=== PATIENT | female | born 1970 | race Hispanic/Latino ===

== ENCOUNTER 2022-09-17 08:35 | Emergency (ER) | payer SELFPAY ==
[2022-09-17] MEDS ORDERED: ALBUTEROL 2.5 MG/3 ML NEB SOL ONE (08:52)
[2022-09-17] MEDS ORDERED: predniSONE 20 MG TAB ONE (08:52)
[2022-09-17] MEDS ORDERED: IPRATROPIUM BROM 0.5MG/2.5ML ONE (08:53)
--- NOTE | 2022-09-17 09:23 | RAD REPORT ---
EXAM DESCRIPTION: [facility] And Lat (2 Views)09/17/2022 8:59 am CLINICAL HISTORY: DYSPNEA. Asthma exacerbation. Cough starting yesterday COMPARISON: No comparisons TECHNIQUE: PA and lateral views of the chest. FINDINGS: Streaky infrahilar/ left basal opacities, on the left, best appreciated on the lateral vie w, could reflect reactive airway changes or early airspace opacification. No pneumothorax or effusion . The cardiomediastinal contours are unremarkable. IMPRESSION: Left infrahilar/ basilar opacities could reflect reactive airway changes or early airspa ce opacities.
[2022-09-17 09:45] LABS: SARS-COV-2 RT PCR NEGATIVE (NEGATIVE)
[2022-09-17] MEDS ORDERED: ACETAMINOPHEN 500 MG TAB ONE (09:49)
--- NOTE | 2022-09-17 10:22 | EDPHYS ---
Physician Documentation [facility] Name: Layla Ny Age: 52 yrs Sex: Female : 1970 Arrival Date: 09/17/2022 Time: 08:35 Bed 20 Private MD: ED Physician Les Chacon HPI: 09/17 08:53 This 52 yrs old Female presents to ER via Ambulatory with complaints of Asthma kb Exacerbation. 08:53 The patient or guardian reports cough, difficulty breathing, flu symptoms, low-grade kb fever. Onset: The symptoms/episode began/occurred yesterday. Severity of symptoms: At their worst the symptoms were moderate, in the emergency department the symptoms are unchanged. Modifying factors: The symptoms are alleviated by nothing, the symptoms are aggravated by nothing. Associated signs and symptoms: Pertinent positives: fever, Pertinent negatives: chest pain, diarrhea, ear ache, nausea, rhinorrhea, sore throat, vomiting. The patient has not experienced similar symptoms in the past. The patient has not recently seen a physician. Historical: - Allergies: 08:44 No Known Allergies; ap3 - PMHx: 08:44 Diabetes mellitus; Asthma; ap3 - PSHx: 08:44 section; ap3 - Immunization history:: Client reports receiving the 2nd dose of the Covid vaccine. - Social history:: Smoking status: Patient denies any tobacco usage or history of. ROS: 08:52 Abdomen/GI: Negative for abdominal pain, nausea, vomiting, diarrhea, and constipation. kb 08:52 Constitutional: Positive for fever. 08:52 Respiratory: Positive for cough, shortness of breath. 08:52 All other systems are negative. Exam: 08:52 Constitutional: This is a well developed, well nourished patient who is awake, alert, kb and in no acute distress. Head/Face: Normocephalic, atraumatic. ENT: Moist Mucous membranes Cardiovascular: Regular rate and rhythm with a normal S1 and S2. No gallops, murmurs, or rubs. No pulse deficits. Abdomen/GI: Soft, non-tender. No distention Skin: Warm, dry with normal turgor. Normal color. MS/ Extremity: Pulses equal, no cyanosis. Neurovascular intact. Full, normal range of motion. Neuro: Awake and alert, GCS 15, oriented to person, place, time, and situation. Moves all extremities. Normal gait. Psych: Awake, alert, with orientation to person, place and time. Behavior, mood, and affect are within normal limits. 08:52 Respiratory: mild respiratory distress is noted, Respirations: labored breathing, that is mild, Breath sounds: are clear throughout. Vital Signs: 08:41 BP 151 / 68; Pulse 80; Resp 21; Temp 97.7(T); Pulse Ox 96% ; Weight 92.99 kg; ap3 09:47 BP 142 / 78; Pulse 81; Resp 18; Pulse Ox 94% ; jh5 MDM: 08:36 Patient medically screened. bs3 08:50 Differential diagnosis: acute asthma, URI, Pneumonia, flu, COVID. Data reviewed: vital kb signs, nurses notes. ED course: Patient is a 52-year-old female with a history of diabetes and asthma who presents with shortness of breath, fever, cough that started yesterday. Lungs clear throughout on exam with increased work of breathing. Will obtain flu and COVID test, chest x-ray and provide neb treatments and steroids.. 10:10 Historians other than the Patient: Family Member: family member. Counseling: I had a kb detailed discussion with the patient and/or guardian regarding: the historical points, exam findings, and any diagnostic results supporting the discharge/admit diagnosis, lab results, radiology results, the need for outpatient follow up, a family practitioner, to return to the emergency department if symptoms worsen or persist or if there are any questions or concerns that arise at home. 09/17 08:44 Order name: COVID-19/FLU A+B 09/17 09:46 Order name: COVID-19/FLU A+B; Complete Time: 10:01 EDMS 09/17 08:44 Order name: Chest Pa And Lat (2 Views) XRAY 09/17 09:23 Order name: RAD; Complete Time: 09:24 EDMS Administered Medications: 08:53 Drug: predniSONE 40 mg Route: PO; [facility] 09:04 Drug: DuoNeb (albuterol 2.5 mg, ipratropium 0.5 mg) (3:1) (2.5 mg - 0.5 mg) 3 ml Route: 5 Nebulizer; Disposition: 18:56 Co-signature as Attending Physician, Les Chacon MD. bs3 Disposition Summary: 09/17/22 10:21 Discharge Ordered Location: Home kb Condition: Stable kb Diagnosis - Unspecified asthma with (acute) exacerbation kb Followup: kb - With: Emergency Department - When: As needed - Reason: Worsening of condition Followup: kb - With: Private Physician - When: 2 - 3 days - Reason: Recheck today's complaints, Continuance of care, Re-evaluation by your physician Discharge Instructions: - Discharge Summary Sheet kb - Asthma, Adult, [id number] kb Forms: - Work release form kb - Medication Reconciliation Form kb - Thank You Letter kb - Antibiotic Education kb - Prescription Opioid Use kb Prescriptions: - Prednisone 20 mg Oral Tablet - take 1 tablet by ORAL route once daily for 5 days; 5 tablet; Refills: 0, kb Product Selection Permitted - Zithromax 500 mg Oral Tablet - take 1 tablet by ORAL route once daily for 5 days; 5 tablet; Refills: 0, kb Product Selection Permitted - albuterol sulfate 90 mcg/actuation Inhalation HFA aerosol inhaler - inhale 2 puff by INHALATION route every 4-6 hours As needed; 1 Inhaler; kb Refills: 0, Product Selection Permitted Signatures: Dispatcher [employer] Carmela Lobo, JUANPABLO-C JUANPABLO-Kathy Nguyen RN RN ap3 Nella Barbour RN RN jh5 Les Chacon MD MD bs3
--- NOTE | 2022-09-17 10:22 | ER ---
Nurse's Notes [facility] Name: Layla Ny Age: 52 yrs Sex: Female : 1970 Arrival Date: 09/17/2022 Time: 08:35 Bed 20 Private MD: Diagnosis: Unspecified asthma with (acute) exacerbation Presentation: 09/17 08:41 Chief complaint: Patient states: she started having an asthma exacerbation yesterday ap3 with cough. Coronavirus screen: Client presents with at least one sign or symptom that may indicate coronavirus-19. Ebola Screen: No symptoms or risks identified at this time. Initial Sepsis Screen: Does the patient meet any 2 criteria? No. Patient's initial sepsis screen is negative. Initial Sepsis Screen: Does the patient have a suspected source of infection? No. Patient's initial sepsis screen is negative. Risk Assessment: Do you want to hurt yourself or someone else? Patient reports no desire to harm self or others. Onset of symptoms was September 16, 2022. 08:41 Method Of Arrival: Ambulatory ap3 08:41 Acuity: NERIS 3 ap3 Triage Assessment: 08:44 General: Appears in no apparent distress. Behavior is calm, cooperative, appropriate ap3 for age. Pain: Denies pain. Neuro: Level of Consciousness is awake, alert, obeys commands, Oriented to person, place, time. Respiratory: Reports shortness of breath cough that is Airway is patent Respiratory effort is even, unlabored, Respiratory pattern is regular, symmetrical. Historical: - Allergies: 08:44 No Known Allergies; ap3 - PMHx: 08:44 Diabetes mellitus; Asthma; ap3 - PSHx: 08:44 section; ap3 - Immunization history:: Client reports receiving the 2nd dose of the Covid vaccine. - Social history:: Smoking status: Patient denies any tobacco usage or history of. Screenin:45 [facility] ED Fall Risk Assessment (Adult) History of falling in the last 3 months, ap3 including since admission No falls in past 3 months (0 pts). Abuse screen: Denies threats or abuse. Nutritional screening: No deficits noted. Tuberculosis screening: No symptoms or risk factors identified. Vital Signs: 08:41 BP 151 / 68; Pulse 80; Resp 21; Temp 97.7(T); Pulse Ox 96% ; Weight 92.99 kg; ap3 09:47 BP 142 / 78; Pulse 81; Resp 18; Pulse Ox 94% ; 5 ED Course: 08:35 Patient arrived in ED. mr 08:36 Les Chacon MD is Attending Physician. bs3 08:37 [facility] Echols [facility]C [facility] kb 08:44 Triage completed. ap3 08:45 Arm band placed on right wrist. ap3 08:53 COVID-19/FLU A+B Sent. 5 Administered Medications: 08:53 Drug: predniSONE 40 mg Route: PO; 5 09:04 Drug: DuoNeb (albuterol 2.5 mg, ipratropium 0.5 mg) (3:1) (2.5 mg - 0.5 mg) 3 ml Route: [facility] Nebulizer; Outcome: 10:21 Discharge ordered by . kb 10:50 Patient left the ED. bc6 Signatures: Carmela Echols FNP-C FNP-Oni Cami TapiaKathy, RN RN ap3 Nella Barbour, RN RN 5 Les Chacon MD MD bs3 Nikki Treviño 6
[2022-09-17 10:54] VITALS: TEMP 97.7
[2022-09-17 10:55] VITALS: BP 142/78; O2SAT 94
== END 2022-09-17 10:50 | disposition home or self-care (01) ==
LOC: ER 08:35
DX: J45.901 Unspecified asthma with (acute) exacerbation (principal); R50.9 Fever, unspecified; Z20.822 Contact with and (suspected) exposure to COVID-19
CPT/HCPCS: 0240U; 71046; J7512; J7613; J7644

== ENCOUNTER 2024-03-04 13:07 | Emergency (ER) | payer SELFPAY ==
--- OUTSIDE RECORDS SUMMARY | 2024-03-04 13:10 | XMS REPORT | Continuity of Care Document ---
Author Name Unknown Address [address] [facility]. [address] [place] [address] [facility] thconnect Address 1200 [facility] [address] [place] [address] Care Team Providers Care Library Media Assistant Name Role Phone Unavailable Unavailable Unavailable Encounters Start Date/Time End Date/Time Encounter Type Admission Type Attending [facility] Care Facility Care Department Encounter ID Source 2023-11-17 08:43:49 2023-11-17 08:43:49 Outpatient [facility] SFA [id number] Michael Gibbs 2023-10-07 08:14:58 2023-10-07 08:14:58 Outpatient SFA SFA [id number] Michael Gibbs 2023-10-06 14:04:46 2023-10-06 14:04:46 Outpatient SFA SFA [id number] Michael Gibbs 2023-09-24 09:51:40 2023-09-24 09:51:40 Outpatient SFA SFA [id number] Michael Gibbs 2023-09-18 09:39:14 2023-09-18 09:39:14 Outpatient SFA SFA [id number] Michael Gibbs 2023-08-31 09:08:53 2023-08-31 09:08:53 Outpatient SFA SFA [id number] Michael Gibbs 2023-08-28 15:40:59 2023-08-28 15:40:59 Outpatient SFA SFA [id number] Michael Gibbs 2023-04-13 17:15:45 2023-04-13 17:15:45 Outpatient SFA SFA [id number] Michael Gibbs 2023-02-04 17:05:03 2023-02-04 17:05:03 Outpatient SFA SFA [id number] Michael Gibbs 2023-01-28 11:08:10 2023-01-28 11:08:10 Outpatient [facility] [id number] Michael Gibbs 2022-11-19 09:09:28 2022-11-19 09:09:28 Outpatient [facility] [id number] Michael Gibbs 2022-11-18 16:08:56 2022-11-18 16:08:56 Outpatient [facility] [id number] Michael Gibbs 2022-09-26 16:11:25 2022-09-26 16:11:25 Outpatient [facility] [id number] Michael Gibbs 2022-07-03 08:14:00 2022-07-03 08:14:00 Outpatient [facility] [id number] Michael Gibbs 2022-07-01 09:01:34 2022-07-01 09:01:34 Outpatient [facility] [id number] Michael Gibbs 2022-06-11 13:16:51 2022-06-11 13:16:51 Outpatient [facility] [id number] Michael Gibbs Results Test Description Test Time Test Comments Results Result Co mments Source COMPREHENSIVE METABOLIC [id number] 05:45:21* Test Item Value Reference Range Interpretation Comme nts GLUCOSE (test code = 2217) 165 MG/DL 70-99 H BUN (test code = 2208) 16 MG/DL 6-20 CREATININE (test code = 2214) 0.58 MG/DL 0.60-1.30 L eGFR (2020 CKD-EPI) (test code = 30385) 107 ML/MIN/1.73 >60 CALC BUN/CREAT (test code = 2235) 28 RATIO 6-28 SODIUM (test code = 2231) 139 MEQ/L 133-146 POTASSIUM (test code = 2228) 4.4 MEQ/L 3.5-5.4 CHLORIDE (test code = 2215) 102 MEQ/L 95-107 CARBON DIOXIDE (test code = 2206) 26 MEQ/L 19-31 CALCIUM (test code = 2209) 9.6 MG/DL 8.5-10.5 PROTEIN, TOTAL (test code = 222) 7.5 G/DL 6.1-8.3 ALBUMIN (test code = 2201) 4.2 G/DL 3.5-5.2 CALC GLOBULIN (test code = 2240) 3.3 G/DL 1.9-3.7 CALC A/G RATIO (test code = 2233) 1.3 RATIO 1.0-2.6 BILIRUBIN, TOTAL (test code = 7) 0.5 MG/DL <=1.2 ALKALINE PHOSPHATASE (test code = 4) 80 U/L 40-133 AST (test code = 2218) 16 U/L 9-40 ALT (test code = 2219) 17 U/L 5-40 LIPID [id number] 05:45:21* Test Item Value Reference Range Interpretation Comme nts CHOLESTEROL (test code = 0) 150 MG/DL <200 TRIGLYCERIDES (test code = 2232) 84 MG/DL <150 HDL CHOLESTEROL (test code = 0) 43 MG/DL >39 CALC LDL CHOL (test code = 2236) 90 MG/DL <100 NOTE: CALCULATED LDL IS BASED ON OSIEL-MIRANDA METHOD WHICHINCLUDES ADJUSTABLE TRIGLYCERIDE:VLDL CHOLESTEROL RATIO.THIS FACTOR VARIES BY MEASURED TRIGLYCERIDE AND NON-HDLCHOLESTEROL CONCENTRATIONS WITH INCREASED CALCULATED LDL SEENIN HIGHER TRIGLYCERIDE OR LOWER NON-HDL SPECIMENS. FOR MOREINFORMATION, SEE CLIENT ANNOUNCEMENT AT [email or web address] RISK RATIO LDL/HDL (test code = 2238) 2.09 RATIO <3.22 HEMOGLOBIN [id number] 04:53:28* Test Item Value Reference Range Interpretation Comme nts HEMOGLOBIN A1c (test code = 32832) 8.0 % 4.2-5.6 H [employer] GUIDELINES FOR HGB A1C: PREDIABETES/INCREASED RISK . . . . . . . 5.7-6.4% DIAGNOSIS OF DIABETES . . . . . . . . . >=6.5% WITH CONFIRMATION OR APPROPRIATE SYMPTOMS NOTE: ASSAY MAY BE AFFECTED BY HEMOGLOBINOPATHIES (SICKLE CELL ANEMIA, S-C DISEASE, OTHERS) OR ARTIFICIALLY LOWERED BY DECREASED RED CELL SURVIVAL (HEMOLYTIC ANEMIAS, BLOOD LOSS, ETC.). CONSIDER ALTERNATE TESTING OR LABORATORY CONSULTATION. H. PYLORI (BREATH)2023-10-08 16:47:53* Test Item Value Reference Range Interpretation Comme nts H. PYLORI (BREATH) (test code = 10483) NEGATIVE NEGATIVE UNLESS OTHER JAMES INDICATED, ALL TESTING PERFORMED AT [facility] [address] [place] [address] DIRECTOR GLOBAL DEVELOPMENT: SWATHI MARTE M.D. CLIA NUMBER [id number] [place]. [id number] H. PYLORI (BREATH)2023-09-01 14:49:25* Test Item Value Reference Range Interpretation Comme nts H. PYLORI (BREATH) (test code = 92511) POSITIVE NEGATIVE A UNLESS OTHER JAMES INDICATED, ALL TESTING PERFORMED AT [facility] [address] [place] [address] DIRECTOR GLOBAL DEVELOPMENT: SWATHI MARTE M.D. CLIA NUMBER [id number] [place]. [id number] ALBUMIN/CREATININE RATIO, URINE, [id number] 05:19:00* Test Item Value Reference Range Interpretation Comme nts CREATININE, URINE, CONC. (test code = 2072) 270.0 MG/DL NOT ESTAB ALBUMIN, URINE, RANDOM (test code = 63501) 14.1 MG/DL NOT ESTAB CALC ALBUMIN/CREAT, RND (test code = 60849) 52 MG/G <30 H Note: Albumin/Creatinine ratio reference interval reflects ADA and NKF guidelines. COMPREHENSIVE METABOLIC [id number] 04:26:22* Test Item Value Reference Range Interpretation Comme nts GLUCOSE (test code = 2217) 171 MG/DL 70-99 H BUN (test code = 2208) 16 MG/DL 6-20 CREATININE (test code = 2214) 0.55 MG/DL 0.60-1.30 L eGFR (2020 CKD-EPI) (test code = 47654) 108 ML/MIN/1.73 >60 CALC BUN/CREAT (test code = 2235) 29 RATIO 6-28 H SODIUM (test code = 2231) 140 MEQ/L 133-146 POTASSIUM (test code = 2228) 4.5 MEQ/L 3.5-5.4 CHLORIDE (test code = 2215) 100 MEQ/L 95-107 CARBON DIOXIDE (test code = 2206) 27 MEQ/L 19-31 CALCIUM (test code = 2209) 10.0 MG/DL 8.5-10.5 PROTEIN, TOTAL (test code = 222) 7.5 G/DL 6.1-8.3 ALBUMIN (test code = 2200) 4.1 G/DL 3.5-5.2 CALC GLOBULIN (test code = 2240) 3.4 G/DL 1.9-3.7 CALC A/G RATIO (test code = 2233) 1.2 RATIO 1.0-2.6 BILIRUBIN, TOTAL (test code = 7) 0.4 MG/DL <=1.2 ALKALINE PHOSPHATASE (test code = 4) 87 U/L 40-133 AST (test code = 2218) 20 U/L 9-40 ALT (test code = 2219) 23 U/L 5-40 LIPID [id number] 04:26:22* Test Item Value Reference Range Interpretation Comme nts CHOLESTEROL (test code = 0) 179 MG/DL <200 TRIGLYCERIDES (test code = 2232) 165 MG/DL <150 H HDL CHOLESTEROL (test code = 0) 40 MG/DL >39 CALC LDL CHOL (test code = 2236) 111 MG/DL <100 H NOTE: CALCULATED LDL IS BASED ON OSIEL-MIRANDA METHOD WHICHINCLUDES ADJUSTABLE TRIGLYCERIDE:VLDL CHOLESTEROL RATIO.THIS FACTOR VARIES BY MEASURED TRIGLYCERIDE AND NON-HDLCHOLESTEROL CONCENTRATIONS WITH INCREASED CALCULATED LDL SEENIN HIGHER TRIGLYCERIDE OR LOWER NON-HDL SPECIMENS. FOR MOREINFORMATION, SEE CLIENT ANNOUNCEMENT AT [email or web address] [email or web address] RATIO LDL/HDL (test code = 223) 2.78 RATIO <3.22 HEMOGLOBIN [id number] 02:42:18* Test Item Value Reference Range Interpretation Comme [facility] HEMOGLOBIN A1c (test code = 12844) 11.3 % 4.2-5.6 H [employer] GUIDELINES FOR HGB A1C: PREDIABETES/INCREASED RISK . . . . . . . 5.7-6.4% DIAGNOSIS OF DIABETES . . . . . . . . . >=6.5% WITH CONFIRMATION OR APPROPRIATE SYMPTOMS NOTE: ASSAY MAY BE AFFECTED BY HEMOGLOBINOPATHIES (SICKLE CELL ANEMIA, S-C DISEASE, OTHERS) OR ARTIFICIALLY LOWERED BY DECREASED RED CELL SURVIVAL (HEMOLYTIC ANEMIAS, BLOOD LOSS, ETC.). CONSIDER ALTERNATE TESTING OR LABORATORY CONSULTATION. MENDEZ (ANTI-NUCLEAR AB) WITH REFLEX [id number] 02:36:39* Test Item Value Reference Range Interpretation Comme nts ANTI-NUCLEAR ANTIBODIES (test code = 3506) NEGATIVE NEGATIVE Methodology is I ndirect Immunofluorescent Assay (IFA) with a titering system using [id number] cells (Hep2 cells transfected with SS-A/Ro). MENDEZ PATTERN (REPORTED TITER) (test code = 00339) SEE BELOW HOMOGENEOUS (test code = 49188) NEGATIVE TITER NEGATIVE SPECKLED (test code = 517440) NEGATIVE TITER NEGATIVE DENSE FINE SPECKLED (test code = 36322) NEGATIVE TITER NEGATIVE CENTROMERE (test code = 194955) NEGATIVE TITER NEGATIVE COARSE SPECKLED (test code = 983543) NEGATIVE TITER NEGATIVE DISCRETE NUCLEAR DOTS (test code = 556460) NEGATIVE TITER NEGATIVE NUCLEOLAR (test code = 248846) NEGATIVE TITER NEGATIVE NUCLEAR MEMBRANE (test code = 568201) NEGATIVE TITER NEGATIVE CYTO. RETICULAR (JACKY) (test code = 900971) NEGATIVE NEGATIVE COMMENTS (test code = 243999) NONE METHOD (test code = 88617) (NOTE) TESTING PERFORME D BY [employer] IFA PLATFORM.THE METHOD INCLUDES A SCREEN THRESHOLD OF 1:80, DIGITIZED AND COMPUTER ALGORITHM-ASSISTED INTERPRETATION OF TITERS AND DIGITAL PATTERNS, AND HEp-2 CELL LINE SUBSTRATE. ADDITIONAL UNUSUAL PATTERNS WILL BE GIVEN COMMENTS.FOR MORE INFORMATION, SEE [email or web address] SEDIMENTATION [id number] 08:33:43* Test Item Value Reference Range Interpretation Comme nts SEDIMENTATION RATE (test cod e = 1017) 14 MM/HOUR 0-20 COMPREHENSIVE METABOLIC [id number] 06:50:22* Test Item Value Reference Range Interpretation Comme nts GLUCOSE (test code = 2217) 288 MG/DL 70-99 H BUN (test code = 2208) 18 MG/DL 6-20 CREATININE (test code = 2214) 0.52 MG/DL 0.60-1.30 L eGFR (2020 CKD-EPI) (test code = 94341) 110 ML/MIN/1.73 >60 CALC BUN/CREAT (test code = 2235) 35 RATIO 6-28 H SODIUM (test code = 2231) 137 MEQ/L 133-146 POTASSIUM (test code = 2228) 4.0 MEQ/L 3.5-5.4 CHLORIDE (test code = 2215) 99 MEQ/L 95-107 CARBON DIOXIDE (test code = 2206) 26 MEQ/L 19-31 CALCIUM (test code = 2209) 9.2 MG/DL 8.5-10.5 PROTEIN, TOTAL (test code = 2229) 7.0 G/DL 6.1-8.3 ALBUMIN (test code = 2201) 4.1 G/DL 3.5-5.2 CALC GLOBULIN (test code = 2240) 2.9 G/DL 1.9-3.7 CALC A/G RATIO (test code = 2234) 1.4 RATIO 1.0-2.6 BILIRUBIN, TOTAL (test code = 2206) 0.5 MG/DL See_Comment [Automated me ssage] The system which generated this result transmitted reference range: <=1.2. The reference range was not used to interpret this result as normal/abnormal. ALKALINE PHOSPHATASE (test code = 2203) 88 U/L 40-133 AST (test code = 2218) 15 U/L 9-40 ALT (test code = 2219) 18 U/L 5-40 LIPID [id number] 06:50:22* Test Item Value Reference Range Interpretation Comme nts CHOLESTEROL (test code = 0) 171 MG/DL <200 TRIGLYCERIDES (test code = 2232) 121 MG/DL <150 HDL CHOLESTEROL (test code = 0) 43 MG/DL >39 CALC LDL CHOL (test code = 7) 106 MG/DL <100 H NOTE: CALCULATED LDL IS BASED ON OSIEL-MIRANDA METHOD WHICHINCLUDES ADJUSTABLE TRIGLYCERIDE:VLDL CHOLESTEROL RATIO.THIS FACTOR VARIES BY MEASURED TRIGLYCERIDE AND NON-HDLCHOLESTEROL CONCENTRATIONS WITH INCREASED CALCULATED LDL SEENIN HIGHER TRIGLYCERIDE OR LOWER NON-HDL SPECIMENS. FOR MOREINFORMATION, SEE CLIENT ANNOUNCEMENT AT [email or web address] RISK RATIO LDL/HDL (test code = 2238) 2.47 RATIO <3.22 HEMOGLOBIN [id number] 05:49:08* Test Item Value Reference Range Interpretation Comme nts HEMOGLOBIN A1c (test code = 77568) 11.8 % 4.2-5.6 H [employer]IATION GUIDELINES FOR HGB A1C: PREDIABETES/INCREASED RISK . . . . . . . 5.7-6.4% DIAGNOSIS OF DIABETES . . . . . . . . . >=6.5% WITH CONFIRMATION OR APPROPRIATE SYMPTOMS NOTE: ASSAY MAY BE AFFECTED BY HEMOGLOBINOPATHIES (SICKLE CELL ANEMIA, S-C DISEASE, OTHERS) OR ARTIFICIALLY LOWERED BY DECREASED RED CELL SURVIVAL (HEMOLYTIC ANEMIAS, BLOOD LOSS, ETC.). CONSIDER ALTERNATE TESTING OR LABORATORY CONSULTATION. CBC W/AUTO DIFF WITH [id number] 05:22:34* Test Item Value Reference Range Interpretation Comme nts WBC (test code = 1001) 7.5 K/UL 3.5-11.0 RBC (test code = 1002) 4.73 M/UL 3.80-5.40 HEMOGLOBIN (test code = 1003) 13.4 G/DL 11.5-15.5 HEMATOCRIT (test code = 1004) 41.8 % 34.0-45.0 MCV (test code = 1005) 88.4 fL 80.0-99.0 MCH (test code = 1006) 28.3 PG 25.0-33.0 MCHC (test code = 1007) 32.1 G/DL 31.0-36.0 RDW (test code = 1038) 12.5 % 11.5-15.0 NEUTROPHILS (test code = 1008) 47.5 % LYMPHOCYTES (test code = 1010) 41.7 % MONOCYTES (test code = 1011) 7.0 % EOSINOPHILS (test code = 1012) 3.0 % BASOPHILS (test code = 1013) 0.7 % NUCLEATED RBCS (test code = 1065) 0.0 /100 WBC'S See_Comment [Automated message] The system which generated this result transmitted reference range: 0.0. The reference range was not used to interpret this result as normal/abnormal. PLATELET COUNT (test code = 1015) 250 K/UL 130-400 ABSOLUTE NEUTROPHILS (test code = 1066) 3.54 K/UL 1.50-7.50 ABSOLUTE LYMPHOCYTES (test code = 1067) 3.11 K/UL 1.00-4.00 ABSOLUTE MONOCYTES (test code = 1068) 0.52 K/UL 0.20-1.00 ABSOLUTE EOSINOPHILS (test code = 1040) 0.22 K/UL 0.00-0.50 ABSOLUTE BASOPHILS (test code = 1069) 0.05 K/UL 0.00-0.20 ABS NUCLEATED RBCS (test code = 36850) 0.00 K/UL 0.00-0.11 [facility] has important pathology staff changes effective 10/01/2022. New pathology staff will provide uninterrupted, excellent patient care and clinical consultation. See URL: [email or web address]. UNLESS OTHERWISE INDICATED, ALL TESTING PERFORMED AT [facility] [address] [place] [address] DIRECTOR GLOBAL DEVELOPMENT: SWATHI MARTE M.D. CLIA NUMBER [id number] [facility] [place]. [id number] TSH, THIRD [id number] 06:31:21* Test Item Value Reference Range Interpretation Comme nts TSH, THIRD GENERATION (test code = 2821) 1.350 UIU/ML 0.400-4.100 LIPID [id number] 04:35:44* Test Item Value Reference Range Interpretation Comme nts CHOLESTEROL (test code = 2210) 213 MG/DL <200 H TRIGLYCERIDES (test code = 2232) 139 MG/DL <150 HDL CHOLESTEROL (test code = 2220) 40 MG/DL >39 CALC LDL CHOL (test code = 2237) 147 MG/DL <100 H NOTE: CALCULATED LDL IS BASED ON OSIEL-MIRANDA METHOD WHICHINCLUDES ADJUSTABLE TRIGLYCERIDE:VLDL CHOLESTEROL RATIO.THIS FACTOR VARIES BY MEASURED TRIGLYCERIDE AND NON-HDLCHOLESTEROL CONCENTRATIONS WITH INCREASED CALCULATED LDL SEENIN HIGHER TRIGLYCERIDE OR LOWER NON-HDL SPECIMENS. FOR MOREINFORMATION, SEE CLIENT ANNOUNCEMENT AT [email or web address] RISK RATIO LDL/HDL (test code = 2238) 3.68 RATIO <3.22 H COMPREHENSIVE METABOLIC [id number] 04:35:44* Test Item Value Reference Range Interpretation Comme nts GLUCOSE (test code = 2217) 224 MG/DL 70-99 H BUN (test code = 2208) 11 MG/DL 6-20 CREATININE (test code = 2214) 0.37 MG/DL 0.60-1.30 L eGFR (2020 CKD-EPI) (test code = 84797) 121 ML/MIN/1.73 >60 CALC BUN/CREAT (test code = 2235) 30 RATIO 6-28 H SODIUM (test code = 2231) 136 MEQ/L 133-146 POTASSIUM (test code = 2228) 4.4 MEQ/L 3.5-5.4 CHLORIDE (test code = 2215) 97 MEQ/L 95-107 CARBON DIOXIDE (test code = 2206) 25 MEQ/L 19-31 CALCIUM (test code = 2208) 9.6 MG/DL 8.5-10.5 PROTEIN, TOTAL (test code = 2228) 7.8 G/DL 6.1-8.3 ALBUMIN (test code = 1) 4.3 G/DL 3.5-5.2 CALC GLOBULIN (test code = 0) 3.5 G/DL 1.9-3.7 CALC A/G RATIO (test code = 2233) 1.2 RATIO 1.0-2.6 BILIRUBIN, TOTAL (test code = 2206) 0.5 MG/DL See_Comment [Automated me ssage] The system which generated this result transmitted reference range: <=1.2. The reference range was not used to interpret this result as normal/abnormal. ALKALINE PHOSPHATASE (test code = 2203) 83 U/L 40-133 AST (test code = 8) 13 U/L 9-40 ALT (test code = 2218) 20 U/L 5-40 HEMOGLOBIN [id number] 04:21:31* Test Item Value Reference Range Interpretation Comme nts HEMOGLOBIN A1c (test code = 86498) 9.7 % 4.2-5.6 H [employer]IATION GUIDELINES FOR HGB A1C: PREDIABETES/INCREASED RISK . . . . . . . 5.7-6.4% DIAGNOSIS OF DIABETES . . . . . . . . . >=6.5% WITH CONFIRMATION OR APPROPRIATE SYMPTOMS NOTE: ASSAY MAY BE AFFECTED BY HEMOGLOBINOPATHIES (SICKLE CELL ANEMIA, S-C DISEASE, OTHERS) OR ARTIFICIALLY LOWERED BY DECREASED RED CELL SURVIVAL (HEMOLYTIC ANEMIAS, BLOOD LOSS, ETC.). CONSIDER ALTERNATE TESTING OR LABORATORY CONSULTATION. HEPATITIS PANEL, [id number] 04:01:57* Test Item Value Reference Range Interpretation Comme nts HEPATITIS A IgM (test code = 12689) NON-REACTIVE NON-REACTIVE HEPATITIS B CORE IgM (test code = 4644) NON-REACTIVE NON-REACTIVE HEPATITIS B SURF AG (test code = 2739) NON-REACTIVE NON-REACTIVE HEPATITIS C ANTIBODY (test code = 4675) NON-REACTIVE NON-REACTIVE INTERPRETATION HEPATITIS A: (test code = 2552) (NOTE) Hepatitis A serology shows no evidence of acute hepatitis A. INTERPRETATION HEPATITIS B: (test code = 29029) (NOTE) Hepatitis B serology shows no evidence of acute hepatitis B andno indication of exposure to hepatitis B virus in the previous jarocho eight months. INTERPRETATION HEPATITIS C: (test code = 52112) (NOTE) Hepatitis C serology shows no evidence of exposure to hepatitisC virus at this time. It can take up to 12 months after exposure tothe hepatitis C virus for antibodies to become detectable in the blood in certain patients. HIV 1/2 4TH GEN, RFLX [id number] 04:01:57* Test Item Value Reference Range Interpretation Comme nts HIV 1/2 4TH GEN, RFLX CONF (test code = 3514) NON-REACTIVE NON-REACTIVE UNLESS OTHERWISE INDICATED, ALL TESTING PERFORMED [facility] [address] [place] [address] DIRECTOR GLOBAL DEVELOPMENT: ANNETTA DASILVA M.D. IA NUMBER [id number] [facility] [place]. [id number] CBC W/AUTO DIFF WITH [id number] 03:09:28* Test Item Value Reference Range Interpretation Comme nts WBC (test code = 1001) 8.4 K/UL 3.5-11.0 RBC (test code = 1002) 4.65 M/UL 3.80-5.40 HEMOGLOBIN (test code = 1003) 13.6 G/DL 11.5-15.5 HEMATOCRIT (test code = 1004) 39.2 % 34.0-45.0 MCV (test code = 1005) 84.3 fL 80.0-99.0 MCH (test code = 1006) 29.2 PG 25.0-33.0 MCHC (test code = 1007) 34.7 G/DL 31.0-36.0 RDW (test code = 1038) 12.7 % 11.5-15.0 NEUTROPHILS (test code = 1008) 61.3 % LYMPHOCYTES (test code = 1010) 28.3 % MONOCYTES (test code = 1011) 6.3 % EOSINOPHILS (test code = 1012) 2.9 % BASOPHILS (test code = 1013) 1.0 % IMMATURE GRANULOCYTES (test code = 1036) 0.2 % NUCLEATED RBCS (test code = 1065) 0.0 /100 WBC'S See_Comment [Automated AFFiRiSa ge] The system which generated this result transmitted reference range: 0.0. The reference range was not used to interpret this result as normal/abnormal. PLATELET COUNT (test code = 1015) 303 K/UL 130-400 ABSOLUTE NEUTROPHILS (test code = 1066) 5.16 K/UL 1.50-7.50 ABSOLUTE LYMPHOCYTES (test code = 1067) 2.38 K/UL 1.00-4.00 ABSOLUTE MONOCYTES (test code = 1068) 0.53 K/UL 0.20-1.00 ABSOLUTE EOSINOPHILS (test code = 1040) 0.24 K/UL 0.00-0.50 ABSOLUTE BASOPHILS (test code = 1069) 0.08 K/UL 0.00-0.20 ABS IMMATURE GRANULOCYTES (test code = 1020) 0.02 K/UL 0.00-0.10 ABS NUCLEATED RBCS (test code = 00702) 0.00 K/UL 0.00-0.11 CULTURE, [id number] 08:53:31SPECIMEN NUMBER: [id number] CULTURE, URINE SPECIMEN NUMBER: [id number] SOURCE: URINE REPORT STATUS: FINAL FINAL REPORT: 11/21/2021 >100,000 CFU/ML UROGENITAL YEHUDA PRESENT NO COMMON PATHOGENS UNLESS OTHERWISE INDICATED, [facility] TEST[facility] [address] [place] [address] DIRECTOR GLOBAL DEVELOPMENT: ANNETTA DASILVA M.D. CLIA NUMBER [id number] [facility] [place]. [id number]
[2024-03-04] MEDS ORDERED: NA CHLORIDE 0.9% 1,000 ML ONE (14:10)
[2024-03-04 14:13] LABS: Absolute Basophils 0.1 K/uL (0-0.5); Absolute Eosinophils 0.3 K/uL (0-0.5); Absolute Lymphocytes (CBC) 2.1 K/uL (0.7-4.9); Absolute Monocytes 0.6 K/uL (0.1-1.3); Absolute Neutrophil 4.9 K/uL (1.8-8.0); Eosinophils % 3.3 % (0-4.4); Hemoglobin 12.6 g/dL (12.0-15.0); Lymphocytes % 26.5 % (15.3-44.8); MCH 28.9 pg (27.0-35.0); MCHC 33.2 g/dL (32.0-36.0); Monocytes % 7.1 % (3.3-12.3); Neutrophils % 62.1 % (41.7-73.7); Nucleated Red Blood Cells % 0.1 % (0-0); Platelets 258 thou/uL (152-406); RBC Red Blood Cell Count 4.36 M/uL (3.86-4.86)
[2024-03-04 14:29] LABS: Anion Gap 7.9 mEq/L (5.0-15.0); BUN Blood Urea Nitrogen 28 mg/dL (7-18); Bicarbonate 28 mEq/L (21-32); Glomerular Filtration Rate 101 ml/min (=/>90); Glucose Level 235 mg/dL (74-106); Potassium 3.9 mEq/L (3.5-5.1); Sodium Level 137 mEq/L (136-145)
[2024-03-04 14:30] LABS: Troponin High Sensitivity < 3.0 pg/mL (<58.9)
[2024-03-04 14:31] LABS: ALT/SGPT 23 U/L (13-56); AST/SGOT 11 U/L (15-37); Albumin 3.3 g/dL (3.4-5.0); Albumin/Globulin Ratio 0.8 (1.1-1.8); Alkaline Phosphatase 79 U/L (45-117); Bilirubin Total 0.3 mg/dL (0.2-1.0); Creatine Phosphokinase 92 U/L (26-192); Magnesium 1.9 mg/dL (1.6-2.4); NT PRO-BNP 102 pg/mL (<125); Protein, Total 7.3 g/dL (6.4-8.2)
[2024-03-04 14:41] LABS: Bilirubin Direct < 0.2 mg/dL (0-0.2); Bilirubin Indirect, Calculated 0.1 mg/dL (0.2-0.8)
--- NOTE | 2024-03-04 15:31 | RAD REPORT ---
EXAM DESCRIPTION: RADChest Single View03/04/2024 2:10 pm CLINICAL HISTORY: CHEST PAIN COMPARISON: Chest Pa And Lat (2 Views) dated 09/17/2022 TECHNIQUE: Portable AP view of the chest. FINDINGS: The lungs are clear. No pneumothorax or effusion. The cardiomediastinal contours are unre markable. IMPRESSION: No acute cardiopulmonary process.
--- NOTE | 2024-03-04 16:02 | EDPHYS ---
Physician Documentation [facility] Name: Layla Ny Age: 54 yrs Sex: Female : 1970 Arrival Date: 03/04/2024 Time: 13:07 Bed 16 Private MD: ED Physician Grace Cruz HPI: 03/04 14:23 This 54 yrs old Female presents to ER via EMS with complaints of Syncope. sd2 14:23 54-year-old female presents via EMS with chief complaint of syncopal episode. She was sd2 working in the kitchen when she feels that she likely became overheated and felt lightheaded. They sat her down in a chair after which time she passed out. They report that when she came to use she was complaining of some chest pain. She denies any preceding chest pain or shortness of breath and does not have any symptoms currently. She is currently feeling much better. She denies any prior cardiac history or history of syncope. Blood sugar was in the 240s with EMS.. Historical: - Allergies: 13:31 No Known Allergies; nj1 - PMHx: 13:31 Asthma; diabetes mellitus; nj1 - PSHx: 13:31 section; nj1 - Immunization history:: Client reports receiving the 2nd dose of the Covid vaccine. - Infectious Disease History:: Denies. - Social history:: Smoking status: Patient denies any tobacco usage or history of. ROS: 14:23 Constitutional: Negative for fever, chills, and weight loss, Eyes: Negative for injury, sd2 pain, redness, and discharge, Cardiovascular: Negative for chest pain, palpitations, and edema, Positive for syncope Respiratory: Negative for shortness of breath, cough, wheezing. Abdomen/GI: Negative for abdominal pain, nausea, vomiting, diarrhea. MS/Extremity: Negative for injury and deformity, Skin: Negative for injury, rash, and discoloration, Neuro: Positive for headache. Negative for numbness and tingling. Exam: 14:23 Constitutional: This is a well developed, well nourished patient who is awake, alert, sd2 and in no acute distress. Head/Face: Normocephalic, atraumatic. Eyes: EOMI, normal conjunctiva bilaterally Chest/axilla: Normal chest wall appearance and motion. Nontender with no deformity. Cardiovascular: Regular rate and rhythm with a normal S1 and S2. No gallops, murmurs, or rubs. 2+ distal pulses. Respiratory: Lungs have equal breath sounds bilaterally, clear to auscultation and percussion. No rales, rhonchi or wheezes noted. No increased work of breathing, no retractions or nasal flaring. Abdomen/GI: Soft, non-tender, with normal bowel sounds. No guarding or rebound. No evidence of tenderness throughout. Skin: Warm, dry with normal turgor. Normal color with no rashes, no lesions, and no evidence of cellulitis. MS/ Extremity: Pulses equal, no cyanosis. Neurovascular intact. Full, normal range of motion. Neuro: Awake and alert, GCS 15, oriented to person, place, time, and situation. Cranial nerves II-XII grossly intact. Motor strength 5/5 in all extremities. Sensory grossly intact. Psych: Awake, alert, with orientation to person, place and time. Behavior, mood, and affect are within normal limits. 15:09 ECG was reviewed by the Attending Physician. NSR, rate 77, no STEMI criteria sd2 Vital Signs: 13:13 BP 128 / 68; Pulse 79; Resp 18; Temp 97.8(O); Pulse Ox 97% on R/A; Weight 92.08 kg; nj1 Height 5 ft. 4 in. ; Pain 5/10; 13:59 BP 133 / 73; Pulse 78; Resp 18; Pulse Ox 98% on R/A; kj2 16:13 BP 123 / 63; Pulse 72; Resp 18; Pulse Ox 96% on R/A; kj2 13:13 Body Mass Index 33.82 (92.08 kg, 165 cm) nj1 13:13 Pain Scale: Adult nj1 MDM: 13:38 Patient medically screened. sd2 14:23 Differential Diagnosis: vasovagal, orthostasis, dehydration, electrolyte abnormality, sd2 heat exhaustion among others. Data reviewed: vital signs, nurses notes, EMS record, lab test result(s), EKG. Data reviewed: radiologic studies. Historians other than the Patient: EMS: provides initial report. Care significantly affected by the following chronic conditions: Diabetes. Counseling: I had a detailed discussion with the patient and/or guardian regarding. 16:00 Counseling: I had a detailed discussion with the patient and/or guardian regarding the sd2 historical points, exam findings, and any diagnostic results supporting the discharge/admit diagnosis, lab results, radiology results, the need for outpatient follow up, to return to the emergency department if symptoms worsen or persist or if there are any questions or concerns that arise at home. ED course: Pt feeling improved. VSS. Labs reassuring. Trop neg. EKG with no ischemic changes. No arrhythmia noted on telemetry. Pt advised of results and need for follow up with PCP. Verbalizes understanding of discharge plan and strict return precautions. . 03/04 13:34 Order name: Basic Metabolic Panel; Complete Time: 14:44 ec2 03/04 13:34 Order name: CBC with Diff; Complete Time: 14:23 ec2 03/04 13:34 Order name: Troponin HS; Complete Time: 14:44 ec2 03/04 13:49 Order name: Hepatic Function; Complete Time: 14:44 sd2 03/04 13:49 Order name: Magnesium; Complete Time: 14:44 sd2 03/04 13:49 Order name: CK; Complete Time: 14:44 sd2 03/04 13:49 Order name: BNP; Complete Time: 14:44 sd2 03/04 13:34 Order name: XRAY Chest (1 view); Complete Time: 15:32 ec2 03/04 13:34 Order name: Cardiac monitoring; Complete Time: 14:02 ec2 03/04 13:34 Order name: EKG - Nurse/Tech; Complete Time: 14:28 ec2 03/04 13:34 Order name: IV Saline Lock; Complete Time: 13:59 ec2 03/04 13:34 Order name: Labs collected and sent; Complete Time: 13:59 ec2 03/04 13:34 Order name: O2 Per Protocol; Complete Time: 13:59 ec2 03/04 13:34 Order name: O2 Sat Monitoring; Complete Time: 13:59 ec2 Administered Medications: 14:13 Drug: NS 0.9% IV 1000 ml IV at 1 bolus Per protocol; 1000 mL bolus Route: IV; Rate: 1 kj2 bolus; Site: right antecubital; 15:30 Follow up: IV Status: Completed infusion; IV Intake: 1000ml kj2 Disposition Summary: 03/04/24 16:01 Discharge Ordered Problem: new sd2 Symptoms: have improved sd2 Condition: Stable sd2 Diagnosis - Syncope sd2 Followup: sd2 - With: Private Physician - When: 2 - 3 days - Reason: Recheck today's complaints, Continuance of care, Re-evaluation by your physician Discharge Instructions: - Discharge Summary Sheet sd2 - Syncope sd2 Forms: - Medication Reconciliation Form sd2 - Antibiotic Education sd2 - Prescription Opioid Use sd2 - Patient Portal Instructions sd2 - Leadership Thank You Letter sd2 Signatures: Dispatcher [employer] EDMS Grace Cruz MD MD sd2 Janelle Nichole, RN RN nj1 Helder Padilla MD MD ec2 Olinda Hills, RN RN kj2 Corrections: (The following items were deleted from the chart) 13:50 13:50 HEPATIC FUNCTION+C.LAB.BRZ ordered. EDMS EDMS 13:50 13:50 MAGNESIUM+C.LAB.BRZ ordered. EDMS EDMS 13:50 13:50 CREATINE PHOSPHOKINASE+C.LAB.BRZ ordered. EDMS EDMS 13:50 13:50 PROBNP+C.LAB.BRZ ordered. EDMS EDMS
--- NOTE | 2024-03-04 16:02 | ER ---
Nurse's Notes [facility] Name: Layla Ny Age: 54 yrs Sex: Female : 1970 Arrival Date: 03/04/2024 Time: 13:07 Bed 16 Private MD: Diagnosis: Syncope Presentation: 03/04 13:13 Chief complaint: EMS states: Syncope. Was at work, thinks she may have overheated, nj1 works at a restaurant kitchen. Was sitting when she passed out, did not fall. Has a slight headache. 13:13 Coronavirus screen: Vaccine status: Patient reports receiving the 2nd dose of the covid nj1 vaccine. Ebola Screen: Patient denies travel to an Ebola-affected area in the 21 days before illness onset. Initial Sepsis Screen: Does the patient meet any 2 criteria? No. Patient's initial sepsis screen is negative. Does the patient have a suspected source of infection? No. Patient's initial sepsis screen is negative. Risk Assessment: Do you want to hurt yourself or someone else? Patient reports no desire to harm self or others. Onset of symptoms was March 04, 2024. 13:13 Method Of Arrival: EMS: [facility] 13:13 Acuity: NERIS 3 [facility] 13:15 Care prior to arrival: Glucose check: 249. [facility] Triage Assessment: 14:51 Neuro: Reports headache frontal area. kj2 Historical: - Allergies: 13:31 No Known Allergies; nj1 - PMHx: 13:31 Asthma; diabetes mellitus; nj1 - PSHx: 13:31 section; nj1 - Immunization history:: Client reports receiving the 2nd dose of the Covid vaccine. - Infectious Disease History:: Denies. - Social history:: Smoking status: Patient denies any tobacco usage or history of. Screenin:33 [facility] ED Fall Risk Assessment (Adult) History of falling in the last 3 months, [facility] including since admission No falls in past 3 months (0 pts) Confusion or Disorientation No (0 pts) Intoxicated or Sedated No (0 pts) Impaired Gait No (0 pts) Mobility Assist Device Used No (0 pt) Altered Elimination No (0 pt) Score/Fall Risk Level 0 - 2 = Low Risk Oriented to surroundings, Maintained a safe environment, Hourly rounding (assess needs \T\ fall precautionary measures) done. Abuse screen: Denies threats or abuse. Denies injuries from another. Nutritional screening: No deficits noted. Tuberculosis screening: No symptoms or risk factors identified. Assessment: 14:02 General: Appears in no apparent distress. Behavior is calm, cooperative. Pain: kj2 Complains of pain in forehead Pain currently is 5 out of 10 on a pain scale. Neuro: Level of Consciousness is awake, alert, obeys commands, Oriented to person, place, time, situation. Cardiovascular: Patient's skin is warm and dry. Respiratory: Airway is patent Respiratory effort is unlabored. GI: No deficits noted. : No deficits noted. 14:50 Reassessment: Patient appears in no apparent distress at this time. Patient and/or kj2 family updated on plan of care and expected duration. Pain level reassessed. Patient is alert, oriented x 3, equal unlabored respirations, skin warm/dry/pink. 14:51 Cardiovascular: Rhythm is. kj2 16:14 Reassessment: Patient appears in no apparent distress at this time. Patient is alert, kj2 oriented x 3, equal unlabored respirations, skin warm/dry/pink. Patient states feeling better. Patient states symptoms have improved. Vital Signs: 13:13 BP 128 / 68; Pulse 79; Resp 18; Temp 97.8(O); Pulse Ox 97% on R/A; Weight 92.08 kg; nj1 Height 5 ft. 4 in. ; Pain 5/10; 13:59 BP 133 / 73; Pulse 78; Resp 18; Pulse Ox 98% on R/A; kj2 16:13 BP 123 / 63; Pulse 72; Resp 18; Pulse Ox 96% on R/A; kj2 13:13 Body Mass Index 33.82 (92.08 kg, 165 cm) nj1 13:13 Pain Scale: Adult tx1 ED Course: 13:27 Patient arrived in ED. kj2 13:31 Triage completed. nj1 13:31 Arm band placed on. nj1 13:33 Patient has correct armband on for positive identification. Bed in low position. Call tx1 light in reach. Adult w/ patient. Provided Education on: call light, fall precautions. Client placed on continuous cardiac and pulse oximetry monitoring. NIBP monitoring applied. court monitor on. 13:38 Grace Cruz MD is Attending Physician. sd2 13:45 Olinda Hills, RN is Primary Nurse. kj2 14:00 No provider procedures requiring assistance completed. Inserted saline lock: 20 gauge kj2 in right antecubital area, using aseptic technique. 14:00 Inserted saline lock: Blood collected. Flushed with 10 mL NS. kj2 14:11 XRAY Chest (1 view) In Process Unspecified. EDMS 14:28 EKG done, by ED staff, reviewed by Grace Cruz MD. nj1 16:15 IV discontinued, intact, bleeding controlled, No redness/swelling at site. Pressure kj2 dressing applied. Administered Medications: 14:13 Drug: NS 0.9% IV 1000 ml IV at 1 bolus Per protocol; 1000 mL bolus Route: IV; Rate: 1 kj2 bolus; Site: right antecubital; 15:30 Follow up: IV Status: Completed infusion; IV Intake: 1000ml kj2 Medication: 14:50 VIS not applicable for this client. kj2 Intake: 15:30 IV: 1000ml; Total: 1000ml. kj2 Outcome: 16:01 Discharge ordered by . sd2 16:14 Discharged to home ambulatory, with family, kj2 16:14 Condition: stable 16:14 Discharge instructions given to patient, family, Instructed on discharge instructions, follow up and referral plans. safety practices, Demonstrated understanding of instructions, follow-up care, 16:15 Patient left the ED. kj2 Signatures: Dispatcher [employer] EDMN Grace Cruz MD MD sd2 Janelle Nichole RN RN nj1 Olinda Hills, RN RN kj2 Corrections: (The following items were deleted from the chart) 13:32 13:13 Chief complaint: EMS states: Syncope. 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 nj1
[2024-03-04 19:20] VITALS: TEMP 97.8
[2024-03-04 19:32] VITALS: BP 123/63; O2SAT 96
--- NOTE | 2024-03-07 17:07 | EKG ---
Test Date: 2024-03-04 Test Time: 14:25:47 Health Type Technician: PENG MEASUREMENT RESULTS: Intervals: Rate: 77 WV: 198 QRSD: 88 QT: 396 QTc: 448 [place]: P: 34 WV: 198 QRS: 35 T: 61 INTERPRETIVE STATEMENTS: Normal sinus rhythm Normal ECG No previous ECG available for comparison Electronically Signed On 03-07-24 16:59:36 CDT by Jet Barrett
== END 2024-03-04 16:15 | disposition home or self-care (01) ==
LOC: ER 13:07
DX: R55 Syncope and collapse (principal)
CPT/HCPCS: 36415; 71045; 80048; 80076; 82550; 83735; 83880; 84484; 85025; 93005; 96360; 99285; J7030